=== PATIENT | female | born 1995 | race Caucasian/White ===

== ENCOUNTER 2018-04-02 22:36 | Emergency (ER) | payer OTHER ==
[2018-04-02] MEDS ORDERED: Adacel (T-DAP) 0.5 ML VIAL ONE (23:01)
[2018-04-02] MEDS ORDERED: Lidocaine 1% PF 5 ML VIAL ONE (23:01)
--- NOTE | 2018-04-02 23:12 | RAD ---
THREE VIEWS OF THE RIGHT HAND 04/02/18 COMPARISON: None. HISTORY: Right hand injury with pain. FINDINGS: Three views right hand shows no evidence of acute fracture or dislocation. There appears to be a lace ration on the ulnar aspect of the hand. No radiopaque foreign body is seen. IMPRESSION: No evidence of acute osseous abnormality. POS: [facility]
[2018-04-03] MEDS ORDERED: Bacitracin Zinc 1 Packet ONE (00:23)
== END 2018-04-03 00:46 | disposition home or self-care (01) ==
LOC: ERS 22:36
DX: S61.411A Laceration without foreign body of right hand, initial encounter (principal); Z23 Encounter for immunization; W25.XXXA Contact with sharp glass, initial encounter; Y92.89 Other specified places as the place of occurrence of the external cause; Y99.0 Civilian activity done for income or pay
CPT/HCPCS: 12002; 90471; 90715; J2001